=== PATIENT | male | born 1990 | race Caucasian/White ===

== ENCOUNTER 2018-12-16 01:29 | Emergency (ER) | payer SELFPAY ==
[~2018-12-16] VITALS: Ht 182.9 cm; Wt 95.5 kg
[2018-12-16] MEDS ORDERED: LORAZEPAM 2MG/ML CPJ IV STA (02:01)
[2018-12-16] MEDS ORDERED: SODIUM CHLORIDE 0.9% 1,000 ML IV ONE (02:01)
[2018-12-16] MEDS ORDERED: ONDANSETRON HCL 4MG/2ML INJ IV STA (02:01)
[2018-12-16 02:26] LABS: BASOPHILS % 0.7 % (0.0-2.0); EOSINOPHILS % 1.5 % (0.0-5.0); HEMOGLOBIN. 17.9 g/dL (14.0-18.0); LYMPHOCYTES % 25.2 % (20.0-50.0); MEAN CORPUSCULAR HEMOGLOBIN 32.3 pg (28.0-32.0); MEAN PLATELET VOLUME 10.7 fl (7.4-10.4); MONOCYTES % 8.8 % (2.0-8.0); NEUTROPHILS % 63.8 % (40.0-76.0); PLATELET 235 x1000/uL (130-400); RED BLOOD CELL COUNT 5.54 mill/uL (4.7-6.1); RED CELL DISTRIBUTION WIDTH 13.7 % (11.6-14.6)
[2018-12-16 02:29] LABS: CHLORIDE 105 mEq/L (98-107)
[2018-12-16] MEDS ORDERED: POTASSIUM CHLORIDE 20MEQ TABLET SR PO ONE (03:30)
[2018-12-16 05:03] VITALS: BP 128/78
== END 2018-12-16 05:07 | disposition home or self-care (01) ==
LOC: ER 01:29
DX: F14.10 Cocaine abuse, uncomplicated (principal); R06.4 Hyperventilation; F12.10 Cannabis abuse, uncomplicated; F17.210 Nicotine dependence, cigarettes, uncomplicated
CPT/HCPCS: 36415; 71045; 80053; 84484; 85025; 93005; 96374; 96375; 99284; J2060; J2405; J7030

== ENCOUNTER 2019-07-12 15:07 | Emergency (ER) | payer MEDICAID ==
[~2019-07-12] VITALS: Ht 167.6 cm; Wt 92.0 kg
[2019-07-12] MEDS ORDERED: METHOCARBAMOL 750MG TABLET PO SCH (16:15)
[2019-07-12] MEDS ORDERED: KETOROLAC 30MG/ML VIAL IV ONE (16:15)
[2019-07-12] MEDS ORDERED: KETOROLAC 60MG/2ML VIAL IM ONE (16:30)
[2019-07-12 17:48] LABS: CREATINE KINASE 401 IU/L (39-308)
[2019-07-12 18:48] VITALS: BP 119/86
== END 2019-07-12 18:50 | disposition home or self-care (01) ==
LOC: ER 15:07
DX: F16.188 Hallucinogen abuse with other hallucinogen-induced disorder (principal); M79.18 Myalgia, other site; E86.0 Dehydration; R03.0 Elevated blood-pressure reading, without diagnosis of hypertension; F12.90 Cannabis use, unspecified, uncomplicated
CPT/HCPCS: 36415; 82550; 84484; 93005; 96372; 99284; J1885